=== PATIENT | male | born 1960 | race Hispanic/Latino ===

== ENCOUNTER 2017-03-21 20:34 | Emergency (ER) | payer SELFPAY ==
[2017-03-21] MEDS ORDERED: TYLENOL PO ONE (21:32)
[2017-03-21] MEDS ORDERED: BOOSTRIX IM ONE (21:33)
[2017-03-21 21:35] VITALS: BP 122/85
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
[2017-03-21] MEDS ORDERED: MORPHINE IV ONE ×2 (23:26)
[2017-03-21] MEDS ORDERED: NACL 0.9% 1000 ML 1,000 ML IV ONE (23:26)
[2017-03-21 23:56] LABS: Hemoglobin 16.4 gm/dl (11.8-15.2); White Blood Count 10.1 K/mm3 (4.5-11.0)
[2017-03-21 23:57] LABS: Basophils % (Auto) 0.2 % (0.0-1.8); Eosinophils % (Auto) 0.9 % (0.0-4.3); Hematocrit 48.2 % (35.5-45.6); Mean Corpuscular HGB Conc 34 % (32-34); Mean Corpuscular Hemoglobin 30 pg (28-32); Mean Corpuscular Volume 89 fl (84-94); Platelet Count 205 K/mm3 (140-440); Red Cell Distribution Width 13.2 % (13.2-15.2)
[2017-03-22 00:27] LABS: Alanine Aminotransferase 21 units/L (7-56); Albumin 3.9 g/dL (3.9-5); Albumin/Globulin Ratio 1.9 %; Alkaline Phosphatase 85 units/L (35-129); Anion Gap 19 mmol/L; BUN/Creatinine Ratio 25.55; Blood Urea Nitrogen 23 mg/dL (9-20); Calcium 9.5 mg/dL (8.4-10.2); Carbon Dioxide 21 mmol/L (22-30); Chloride 101.4 mmol/L (98-107); Creatine Kinase 256 units/L (55-170); Glucose 138 mg/dL (75-100); Potassium 4.4 mmol/L (3.6-5.0); Sodium 137 mmol/L (137-145)
[2017-03-22 00:32] LABS: Bilirubin,Direct < 0.2 mg/dL (0-0.2)
== END 2017-03-22 02:07 | disposition home or self-care (01) ==
LOC: ED 20:34
DX: S22.41XA Multiple fractures of ribs, right side, initial encounter for closed fracture (principal); S62.92XA Unspecified fracture of left hand, initial encounter for closed fracture; S00.83XA Contusion of other part of head, initial encounter; F17.200 Nicotine dependence, unspecified, uncomplicated; Y04.8XXA Assault by other bodily force, initial encounter; Y93.89 Activity, other specified; Y99.8 Other external cause status; Y92.89 Other specified places as the place of occurrence of the external cause
CPT/HCPCS: 29125; 36415; 70450; 70486; 71250; 72125; 73130; 80048; 80074; 82550; 85025; 90471; 90715; 96374; 99284; J2270; J7030

== ENCOUNTER 2017-03-23 21:41 | Emergency (ER) | payer SELFPAY ==
[2017-03-24] MEDS ORDERED: MOTRIN PO ONE (01:58)
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
[2017-03-24 05:47] VITALS: BP 134/74
== END 2017-03-24 05:50 | disposition home or self-care (01) ==
LOC: ED 21:41
DX: S13.4XXA Sprain of ligaments of cervical spine, initial encounter (principal); S16.1XXA Strain of muscle, fascia and tendon at neck level, initial encounter; R51 Headache; F17.200 Nicotine dependence, unspecified, uncomplicated; V49.49XA Driver injured in collision with other motor vehicles in traffic accident, initial encounter; Y93.89 Activity, other specified; Y99.8 Other external cause status; Y92.488 Other paved roadways as the place of occurrence of the external cause
CPT/HCPCS: 70450; 72125